=== PATIENT | male | born 1965 | race Caucasian/White ===

== ENCOUNTER 2018-08-06 09:11 | Emergency (ER) | payer OTHER ==
[~2018-08-06] VITALS: Ht 172.7 cm; Wt 90.7 kg
--- NOTE | 2018-08-06 09:44 | NUR ---
chp at bedside.
[2018-08-06] MEDS ORDERED: IBUPROFEN 600 MG TABLET PO ONE (10:00)
[2018-08-06] MEDS ORDERED: IBUPROFEN 600 MG TABLET ONE (10:08)
--- NOTE | 2018-08-06 11:34 | NUR ---
Patient discharged to home in stable conditon. Written and verbal after care instructions given. Patient verbalizes understanding of instructions.pt walks in steady gait. pt with .
[2018-08-06] MEDS ORDERED: NEOMY/BACITRA/POLYMYXIN B OINT UD PACKET TP ONE (11:35)
[2018-08-06 11:42] VITALS: BP 139/81
== END 2018-08-06 11:43 | disposition home or self-care (01) ==
LOC: ER 09:11
DX: S80.211A Abrasion, right knee, initial encounter (principal); S09.90XA Unspecified injury of head, initial encounter; T14.8XXA Other injury of unspecified body region, initial encounter; J45.909 Unspecified asthma, uncomplicated; V23.4XXA Motorcycle driver injured in collision with car, pick-up truck or van in traffic accident, initial encounter; Y93.89 Activity, other specified; Y92.488 Other paved roadways as the place of occurrence of the external cause; Y99.8 Other external cause status
CPT/HCPCS: 70450; 72125; 73502; A4663